=== PATIENT | male | born 1995 | race Caucasian/White ===

== ENCOUNTER 2020-10-27 18:52 | Inpatient (IN) | payer OTHER ==
[~2020-10-27] VITALS: Ht 152.4 cm; Wt 102.4 kg
[2020-10-27 20:55] VITALS: BP 133/64; PULSE 92; TEMP 99.7
[2020-10-27 22:15] LABS: PARTIAL THROMBOPLASTIN TIME 33.3 SECONDS (26.0-37.0)
--- NOTE | 2020-10-28 00:08 | NUR ---
Jhony is 24 year old who came by EMS for increase SOB. He is Heparin drip at 18.5 ml/h. Magui rios just starteed. He is currently on 3L of O2. Will wean him down by morning. Will continue to monitor.
[2020-10-28 00:41] VITALS: BP 139/70; PULSE 94; TEMP 10.1
--- NOTE | 2020-10-28 00:45 | NUR ---
Vancomycin Initial Dosing Pharmacy Note Ordering provider: Moise Phan MD Indication/duration: PNA / 5 days Relevant comorbidities: Recent COVID infection, bilateral PE LABS: (Outside records) WBC = 15.7, T = 99.7 F, SCr = 0.93 Recommendation: Will draw troughs and follow levels. Loading dose: 2 grams Maintenance dose: 1.5 grams every 8 hours Trough goal: 15-20 ug/mL
[2020-10-28 02:34] VITALS: TEMP 98.5
[2020-10-28 05:50] VITALS: BP 128/55; PULSE 82; TEMP 98.8
[2020-10-28 09:16] LABS: MEAN CELL VOLUME 85 fl (80.0-100.0); MEAN CORPUSCULAR HGB CONC 33 g/dl (33.0-37.0); MEAN PLATELET VOLUME 10.5 fl (7.4-10.4); PLATELET COUNT 165 K/mm3 (130-400); RED BLOOD COUNT 3.43 M/mm3 (4.20-5.60); REDCELL DISTRIBUTION WIDTH-CV 12.2 % (11.5-14.5)
[2020-10-28 09:26] LABS: HEMATOCRIT 29.3 % (42.0-52.0); HEMOGLOBIN 9.7 g/dl (13.5-18.0); MEAN CORPUSCULAR HEMOGLOBIN 28 pg (27.0-31.0)
[2020-10-28 09:53] LABS: BASOPHIL 1 % (0-2); EOSINOPHIL 36 % (0-4); LYMPHOCYTE 20 % (20.0-51.0); NEUTROPHILS 39 % (42.0-75.2); NUCLEATED RED BLOOD CELL 2 (0-6)
[2020-10-28 09:54] LABS: PLATELET ESTIMATE NORMAL (NORMAL)
[2020-10-28 12:37] VITALS: BP 138/73; PULSE 90; TEMP 97.6
--- NOTE | 2020-10-28 14:05 | NUR ---
SW called patient to complete intake due to patient being in isolation. Patient states that he lives in [place], [place] with his Trish [phone]. Patient provides that he does not utilize any DME and is independent with ADLs. Patient provides that his PCP is Dr. Oreilly at [facility], and he receives his medications from [facility] as well. Patient provides that he is able to afford his medications and does not utilize any HH services at this time. Patient states that he does not wish to appoint anyone as his DPOA-HC at this time. Patient [place] [facility] [place] has no questions or concerns in that regard. SW will continue to follow. Plan: Home with spouse
[2020-10-28 14:21] LABS: CALCIUM 8.6 mg/dL (8.4-10.2); CREATININE, serum 0.83 (0.66-1.25); POTASSIUM 4.1 mmol/L (3.4-5.0)
[2020-10-28 16:54] VITALS: BP 126/63; PULSE 70; TEMP 98.3
[2020-10-28 21:22] VITALS: BP 147/68; PULSE 89; TEMP 98.8
[2020-10-29] VITALS: BP 136/61; PULSE 79; TEMP 97.8
[2020-10-29 04:01] VITALS: BP 130/66; PULSE 88; TEMP 97.7
--- NOTE | 2020-10-29 04:20 | NUR ---
PT HEPARING GTT INCREASED 250= OR 2.5ML/HR. PT INFUSING AT 26ML/HR. CALL LIGHT WITHIN REACH.
--- NOTE | 2020-10-29 05:06 | NUR ---
HEP GTT STOPPED AT 0500 ORDERED. CALL LIGHT WITHIN REACH.
--- NOTE | 2020-10-29 05:42 | NUR ---
PT REMAINS ON 3L HIGHFLOW NC, SATURATING OVER 94%,PT DENIES PAIN, N/V/D. PT IS SOB ON EXERTION, VSS. HEP GTT CURRENTLY STOPPED PER ORDER, ZOSYN CURRENTLY INFUSING AT 25ML/HR TO RIGHT FA. PT EXPRESSES NO ADDITIONAL NEEDS AT THIS TIME. CALL LIGHT WITHIN REACH.
[2020-10-29 07:23] LABS: ALBUMIN 3.3 gm/dL (3.5-5.0); BILIRUBIN,TOTAL 0.3 mg/dL (0.0-1.0); CALCIUM 9.5 mg/dL (8.4-10.2); CREATININE, serum 1.01 (0.66-1.25); POTASSIUM 4.2 mmol/L (3.4-5.0); TOTAL PROTEIN 6.9 gm/dL (6.4-8.2)
[2020-10-29 07:33] LABS: BASO # 0.1 (0.0-0.2); BASO % 0.3 % (0.0-2.0); EOS % 0.1 % (0-4.0); GRAN % 86.8 % (42.2-75.2); HEMOGLOBIN 10.4 g/dl (13.5-18.0); LYMPH # 1.4 (1.2-3.4); LYMPH % 7.7 % (20.0-51.0); MEAN CELL VOLUME 85 fl (80.0-100.0); MEAN CORPUSCULAR HEMOGLOBIN 29 pg (27.0-31.0); MEAN CORPUSCULAR HGB CONC 34 g/dl (33.0-37.0); MEAN PLATELET VOLUME 10.2 fl (7.4-10.4); MONO # 0.8 (0.1-0.6); MONO % 4.1 % (1.7-9.3); PLATELET COUNT 197 K/mm3 (130-400)
[2020-10-29 07:35] LABS: HEMATOCRIT 30.6 % (42.0-52.0)
[2020-10-29 08:27] VITALS: BP 143/68; PULSE 94; TEMP 98.3
[2020-10-29 08:38] LABS: HIV 1/2 Antibodies Non-Reactive; HIV-1p24 Antigen Non-Reactive
--- NOTE | 2020-10-29 09:38 | NUR ---
Pt awake and alert upon entry, assisted provider with thoracentisis, prepared specimens for lab, Pt tolerated well. Shift assessment complete, left Pt call light in reach, bed in lowest position.
[2020-10-29 09:41] LABS: PLEURAL FLUID RBC 7000 /mm3 (0-0); PLEURAL FLUID WBC 2180 /mm3
[2020-10-29 09:43] LABS: PLEURAL FLUID APPEARANCE CLOUDY; PLEURAL FLUID COLOR AMBER
[2020-10-29 09:59] LABS: GLUCOSE,PLEURAL FLUID 117 mg/dL; TOTAL PROTEIN,PLEURAL FLUID 4.2 gm/dL
[2020-10-29 11:33] VITALS: BP 138/68; PULSE 86; TEMP 98.1
[2020-10-29 16:53] VITALS: BP 132/64; PULSE 55; TEMP 98.6
--- NOTE | 2020-10-29 16:56 | NUR ---
Vancomycin Follow-up Pharmacy Note Current regimen: Vancomycin 1.5 gm IV q8h Vancomycin trough: 13.52 Adjustments: Increase to Vancomycin 1.75 gm IV q8h. Pharmacy will continue to monitor and check a Vancomycin trough on 10/30/20.
[2020-10-29 18:01] LABS: C-ANCA 6 U/mL (0-99)
--- NOTE | 2020-10-29 19:02 | NUR ---
Received report from Kilo. Patient awake in bed. Vancomycin currently infusing.
--- NOTE | 2020-10-29 20:55 | NUR ---
Assesment done. Patient on O2 at 3lpm via NC. Breathing treatment ongoing. He denies pain. PICC line on right upper arm flushes well and with backflow. Call light within reach.
[2020-10-29 20:56] VITALS: BP 146/72; PULSE 99; TEMP 98.5
[2020-10-30 00:51] VITALS: BP 120/66; PULSE 69; TEMP 97.9
[2020-10-30 01:20] LABS: BODY FLUID PH (AMS) 8 (())
[2020-10-30 03:35] VITALS: BP 123/64; PULSE 86; TEMP 97.8
[2020-10-30 06:10] LABS: MEAN CELL VOLUME 88 fl (80.0-100.0); MEAN CORPUSCULAR HGB CONC 33 g/dl (33.0-37.0); MEAN PLATELET VOLUME 10.3 fl (7.4-10.4); PLATELET COUNT 245 K/mm3 (130-400); RED BLOOD COUNT 3.44 M/mm3 (4.20-5.60); REDCELL DISTRIBUTION WIDTH-CV 12.2 % (11.5-14.5)
--- NOTE | 2020-10-30 06:11 | NUR ---
Patient still on O2 at 3lpm via NC. He is afebrile. Still with dyspnea on exertion. Zosyn currently infusing.
[2020-10-30 06:14] LABS: HEMATOCRIT 30.2 % (42.0-52.0); HEMOGLOBIN 9.8 g/dl (13.5-18.0); MEAN CORPUSCULAR HEMOGLOBIN 28 pg (27.0-31.0)
[2020-10-30 06:21] LABS: CALCIUM 9.2 mg/dL (8.4-10.2); CREATININE, serum 0.95 (0.66-1.25); POTASSIUM 4.4 mmol/L (3.4-5.0)
[2020-10-30 07:08] LABS: LYMPHOCYTE 7 % (20.0-51.0); NEUTROPHILS 90 % (42.0-75.2); PLATELET ESTIMATE NORMAL (NORMAL)
[2020-10-30 08:00] VITALS: BP 131/71; PULSE 59; TEMP 97.6
--- NOTE | 2020-10-30 09:21 | NUR ---
Pt napping upon entry, no C/O pain at this time. Shift assessment complete, left Pt call light in reach, bed in lowest position.
[2020-10-30 10:12] LABS: ANA SCREEN with REFLEX Negative (Negative)
[2020-10-30 12:00] VITALS: BP 128/58; PULSE 73; TEMP 97.9
[2020-10-30 15:25] LABS: TB GOLD INTERPRETATION Indeterminate (Negative)
[2020-10-30 16:45] VITALS: BP 131/76; PULSE 63; TEMP 98.3
--- NOTE | 2020-10-30 19:02 | NUR ---
Received report from Kilo. Patient awake in bed. On O2 at 4lpm via NC. With ongoing Vancomycin.
[2020-10-30 20:11] VITALS: BP 132/72; PULSE 77; TEMP 98.1
--- NOTE | 2020-10-30 20:43 | NUR ---
Patient wants to take a shower. Will give Zosyn after. Ashley of [facility] informed me that she decreased O2 of the patient to 2lp via NC.
[2020-10-31] VITALS (7 sets, daily range): BP systolic 130–156; BP diastolic 66–85; PULSE 61–94; TEMP 97.9–98.7
--- NOTE | 2020-10-31 05:50 | NUR ---
Patient had uneventful night. O2 was down at 1lpm via NC. He was able to take a shower with no dyspnea.
[2020-10-31 05:53] LABS: MEAN CELL VOLUME 88 fl (80.0-100.0); MEAN CORPUSCULAR HGB CONC 33 g/dl (33.0-37.0); MEAN PLATELET VOLUME 9.8 fl (7.4-10.4); PLATELET COUNT 192 K/mm3 (130-400); RED BLOOD COUNT 3.26 M/mm3 (4.20-5.60); REDCELL DISTRIBUTION WIDTH-CV 12.4 % (11.5-14.5)
[2020-10-31 05:57] LABS: HEMATOCRIT 28.6 % (42.0-52.0); HEMOGLOBIN 9.4 g/dl (13.5-18.0); MEAN CORPUSCULAR HEMOGLOBIN 29 pg (27.0-31.0)
[2020-10-31 06:07] LABS: CALCIUM 8.6 mg/dL (8.4-10.2); CREATININE, serum 1.13 (0.66-1.25); MAGNESIUM 1.8 mg/dL (1.6-2.3); POTASSIUM 3.6 mmol/L (3.4-5.0)
[2020-10-31 06:44] LABS: EOSINOPHIL 14 % (0-4); METAMYELOCYTE 1 % (0-0); NEUTROPHILS 57 % (42.0-75.2)
[2020-10-31 06:45] LABS: HYPOCHROMIA 1+; LYMPHOCYTE 22 % (20.0-51.0); PLATELET ESTIMATE NORMAL (NORMAL)
--- NOTE | 2020-10-31 11:00 | NUR ---
Patient is doing well today. He is upset about not getting taken off isolation. Explained that Dr Knutson wants him to do the AFB and he needs a sputum test tomorrow. He has not had a productive cough but explained if he gets anything in his cough tomorrow morning to spit it into the cup. He verbalized understanding. Offered him a shower today, he stated maybe at bedtime. No other changes at this time. Call light within reach.
--- NOTE | 2020-10-31 17:00 | NUR ---
Went in to hang patient IV Vanc and he had a large oval red, warm to the touch area on his right forearm. It was only to the ouside of the forearm and did not go up to the PICC line or past the PICC line on the right arm. Patient denies pain or irritation to that area. He denies increased shortness of breath swelling to throat. Checked for spots anywhere else and did not find any. He was not laying on his arm or side. Notified Dr Martin, he said to just watch for tonight and they will recheck it tomorrow. No other changes at this time. Call light within reach.
--- NOTE | 2020-10-31 23:48 | NUR ---
Patient is on 1L non heated high flow with saturation of 87%. Encouraged him deep breathing and it only went up to 88 to 89%. Bump oxygen to 2L and it went up to between 92 to 94. He is having non productive cough otherwise denies pain or SOB. Continue to monitor.
--- NOTE | 2020-11-01 00:16 | NUR ---
right upper arm is warm to touch, reddened, non tender. denies pain.
[2020-11-01 08:18] VITALS: BP 128/78; PULSE 79; TEMP 98.5
--- NOTE | 2020-11-01 09:30 | NUR ---
Scheduled medication given, assessment preformed. Upon auscultation, lungs sound were diminished. Patient continues to require 2 L of O2 via nasal cannula. Patient denies any pain, discomfort, or further needs at this time. No redness, irritation, or edema noted on at PICC site. Will continue to monitor. Call light in reach.
[2020-11-01 12:05] VITALS: BP 134/74; PULSE 61; TEMP 98.5
--- NOTE | 2020-11-01 15:25 | NUR ---
Tree Girdler spoke with RN who advised patient has been independent in his room and is still on 2 liters of oxygen. SW will continue to monitor for discharge needs.
[2020-11-01 16:00] VITALS: BP 129/73; PULSE 83; TEMP 98.3
--- NOTE | 2020-11-01 18:30 | NUR ---
Patient has had an ok day. Continue to be on 2 L via nasal cannula. Denies any pain, discomfort, or SOA at this time. Antibiotics running as ordered. Consent for RADHA recieved and placed on chart. Update given to patient's . Report given to UMBERTO Winn. Call light in reach.
[2020-11-01 20:50] VITALS: BP 132/70; PULSE 88; TEMP 99.3
[2020-11-01 23:59] VITALS: BP 138/78; PULSE 80; TEMP 99
[2020-11-02] VITALS (10 sets, daily range): BP systolic 123–142; BP diastolic 63–76; PULSE 67–98; TEMP 98–98.4
[2020-11-02 08:34] LABS: .HISTOPLASMA ANTIGEN SERUM None Detected (())
--- NOTE | 2020-11-02 18:00 | NUR ---
Patient has had an eventful day. RADHA preformed, tolerated well, results are not back yet. Thoracentesis preformed, 700 ml removed, tolerated well. Fluids and antibiotics running as ordered. VSS. Scheduled medication given. Assessments preformed. Tylenol given earlier in shift for a headache rated a 3/10. Patient currently SATing 95% on RA. O2 available for ambulation. Patient denies any further pain, discomfort, or further needs at this time. Call light in reach. Report given to UMBERTO Winn.
--- NOTE | 2020-11-02 21:14 | NUR ---
Report given that he is in Room air, when I assess him he is in 2L. RT was in his room and said that he lower it down from 3L to 2L and his saturation is between 95 to 98%. I told him that he can be off with Oxygen but he said he will wear it for tonight. I just have him use for his comfort. Otherwise he is fine no complains of SOB or pain. He is resting comfortably in bed. continue to follow.
[2020-11-03 04:07] VITALS: BP 116/62; PULSE 88; TEMP 98
[2020-11-03 08:45] VITALS: BP 130/59; PULSE 87; TEMP 98
--- NOTE | 2020-11-03 08:52 | NUR ---
Pt assessment complete. Pt is laying in bed upon entry, he is A/O x4. His breathing is even and unlabored on 0.5L O2 via NC. Reports some SOB on exertion. Prefers to wear O2 while sleeping despite good sat's. No Pain at this time. Denies N/V, no appetite currently. Denies diarrhea. No needs at this time.
[2020-11-03 12:15] VITALS: BP 122/69; PULSE 85; TEMP 97.4
--- NOTE | 2020-11-03 14:27 | NUR ---
Updated the per patients request.
[2020-11-03 15:11] LABS: MEAN CELL VOLUME 85 fl (80.0-100.0); MEAN CORPUSCULAR HEMOGLOBIN 28 pg (27.0-31.0); MEAN CORPUSCULAR HGB CONC 33 g/dl (33.0-37.0); MEAN PLATELET VOLUME 9.4 fl (7.4-10.4); PLATELET COUNT 182 K/mm3 (130-400); RED BLOOD COUNT 3.55 M/mm3 (4.20-5.60); REDCELL DISTRIBUTION WIDTH-CV 12.5 % (11.5-14.5)
[2020-11-03 15:25] LABS: CALCIUM 8.4 mg/dL (8.4-10.2); CREATININE, serum 1.03 (0.66-1.25); POTASSIUM 3.5 mmol/L (3.4-5.0)
[2020-11-03 16:01] LABS: BASOPHIL 2 % (0-2); EOSINOPHIL 30 % (0-4); LYMPHOCYTE 19 % (20.0-51.0); METAMYELOCYTE 1 % (0-0); NEUTROPHILS 46 % (42.0-75.2)
[2020-11-03 16:02] LABS: PLATELET ESTIMATE NORMAL (NORMAL)
[2020-11-03 16:45] VITALS: BP 140/68; PULSE 92; TEMP 97.9
[2020-11-03 19:07] VITALS: BP 136/95; PULSE 106; TEMP 98.5
--- NOTE | 2020-11-03 19:15 | NUR ---
Uneventful night. RA this afternoon. No pain. POC discussed with patient to have a thora in the AM. Pt verbalized understanding. Linens changed, shower offered. No needs at this time.
[2020-11-04 00:07] VITALS: BP 131/75; PULSE 104; TEMP 98.4
[2020-11-04 04:22] VITALS: BP 120/66; PULSE 94; TEMP 98.1
--- NOTE | 2020-11-04 06:01 | NUR ---
PT SLEPT MAJORITY OF THE NIGHT, REMAINED AFEBRILE THROUGH OUT NIGHT , PT CONTINUES WITH A PRODUCTIVE COUGH AND CONTINUES TO RECEIVE BREATHING TX Q6. 1/2 NS INFUSING VIA PICC LINE AT 50ML/HR, PT DENIES N/V/D. CONSENT FOR THORACENTIS 11/04/20 SIGNED AND PLACED IN PT'S CHART. PT EXPRESSES NO ADDITIONAL NEEDS AT THIS TIME. CALL LIGHT WITHIN REACH.
[2020-11-04 08:11] VITALS: BP 121/67; PULSE 92; TEMP 98.3
--- NOTE | 2020-11-04 08:51 | NUR ---
Pt assessment complete. Pt is laying in bed upon entry, he arouses to voice. Has no pain at this time. Denies SOB. No diarrhea. POC discussed with patient, possible thoracentesis this am. No further needs.
[2020-11-04 08:52] LABS: MEAN CELL VOLUME 85 fl (80.0-100.0); MEAN CORPUSCULAR HGB CONC 33 g/dl (33.0-37.0); MEAN PLATELET VOLUME 9.9 fl (7.4-10.4); PLATELET COUNT 198 K/mm3 (130-400); RED BLOOD COUNT 3.42 M/mm3 (4.20-5.60); REDCELL DISTRIBUTION WIDTH-CV 12.6 % (11.5-14.5)
[2020-11-04 08:53] LABS: HEMATOCRIT 29.1 % (42.0-52.0); HEMOGLOBIN 9.7 g/dl (13.5-18.0); MEAN CORPUSCULAR HEMOGLOBIN 28 pg (27.0-31.0)
[2020-11-04 09:03] LABS: CALCIUM 8.2 mg/dL (8.4-10.2); CREATININE, serum 1.06 (0.66-1.25); POTASSIUM 3.4 mmol/L (3.4-5.0)
[2020-11-04 10:00] LABS: EOSINOPHIL 24 % (0-4); LYMPHOCYTE 30 % (20.0-51.0); NEUTROPHILS 37 % (42.0-75.2); PLATELET ESTIMATE NORMAL (NORMAL)
[2020-11-04 10:01] LABS: STOMATOCYTE 1+
[2020-11-04 12:55] VITALS: BP 118/64; PULSE 99; TEMP 98.3
[2020-11-04 14:54] LABS: COCCIDIOIDES AB IGG Negative (Negative); COCCIDIOIDES AB IGM Negative (Negative); COCCIDIOIDES CF Negative (Negative)
[2020-11-04 17:34] VITALS: BP 126/74; PULSE 91; TEMP 98.6
--- NOTE | 2020-11-04 18:21 | NUR ---
Pt had uneventful day, remained on RA. No pain reported. POC discussed with patient possible thora in the AM. Denies needs at this time. Call light within reach. y
[2020-11-04 20:00] VITALS: BP 146/74; PULSE 101; TEMP 99
[2020-11-05] VITALS (11 sets, daily range): BP systolic 118–138; BP diastolic 67–78; PULSE 75–119; TEMP 97.5–98.9
[2020-11-05 05:59] LABS: HEMOGLOBIN 10.3 g/dl (13.5-18.0); MEAN CELL VOLUME 86 fl (80.0-100.0); MEAN CORPUSCULAR HEMOGLOBIN 28 pg (27.0-31.0); MEAN CORPUSCULAR HGB CONC 33 g/dl (33.0-37.0); PLATELET COUNT 208 K/mm3 (130-400); RED BLOOD COUNT 3.65 M/mm3 (4.20-5.60); REDCELL DISTRIBUTION WIDTH-CV 12.7 % (11.5-14.5)
[2020-11-05 06:07] LABS: HEMATOCRIT 31.2 % (42.0-52.0)
[2020-11-05 06:15] LABS: CREATININE, serum 1.22 (0.66-1.25); POTASSIUM 3.5 mmol/L (3.4-5.0)
--- NOTE | 2020-11-05 06:17 | NUR ---
PT A/OX4, VSS, REMAINS AFEBRILE, PT APPEARS TO BE COUGHING LESS, COUGH REMAINS PRODUCTIVE. ANTIBIOTICS INFUSING TO RIGHT UPPER PICC LINE, PT DENIES PAIN, N/V/D. PT EDUCATED ON PICC REMOVAL WELL SCHEDULED THORACENTESIS. PT VERBALIZES UNDERSTANDING. PT EXPRESSES NO ADDITIONAL NEEDS AT THIS TIME. CALL LIGHT WITHIN REACH.
[2020-11-05 06:54] LABS: BAND 1 % (0-10); EOSINOPHIL 23 % (0-4); HYPOCHROMIA 1+; LYMPHOCYTE 31 % (20.0-51.0); MYELOCYTE 1 % (0-0); NEUTROPHILS 38 % (42.0-75.2); OVALOCYTES 1+; PLATELET ESTIMATE NORMAL (NORMAL)
[2020-11-05 10:56] LABS: PLEURAL FLUID RBC 2000 /mm3 (0-0); PLEURAL FLUID WBC 3295 /mm3
[2020-11-05 11:00] LABS: GLUCOSE,PLEURAL FLUID 66 mg/dL; TOTAL PROTEIN,PLEURAL FLUID 4.2 gm/dL
[2020-11-05 11:02] LABS: PLEURAL FLUID APPEARANCE HAZY; PLEURAL FLUID COLOR YELLOW
--- NOTE | 2020-11-05 19:06 | NUR ---
Pt tolerated thoracentesis to Left lung 300cc out. PICC removed by AIVS, tip sent for culture. New IV started to L hand. Pt no longer on isolation. Pt did not eat lunch or breakfast, drank an ensure. POC discussed with patient who verbalizes understading. No needs at this time.
[2020-11-06 00:10] VITALS: BP 135/73; PULSE 107; TEMP 98.8
[2020-11-06 02:12] LABS: BODY FLUID PH (AMS) 8 (())
[2020-11-06 03:21] VITALS: BP 139/67; PULSE 108; TEMP 98.5
--- NOTE | 2020-11-06 06:11 | NUR ---
PT HAD UNEVENTFUL NIGHT, 02 ROOM AIR, AFEBRILE, PT DENIES PAIN/N/V/D/SOA. PT EXPRESSES NO ADDITIONAL NEEDS AT THIS TIME. CALL LIGHT WITHIN REACH.
[2020-11-06 06:33] LABS: CALCIUM 9.2 mg/dL (8.4-10.2); CREATININE, serum 1.1 (0.66-1.25); POTASSIUM 3.7 mmol/L (3.4-5.0)
[2020-11-06 06:49] LABS: HEMOGLOBIN 11.1 g/dl (13.5-18.0); MEAN CELL VOLUME 86 fl (80.0-100.0); MEAN CORPUSCULAR HEMOGLOBIN 29 pg (27.0-31.0); MEAN CORPUSCULAR HGB CONC 33 g/dl (33.0-37.0); MEAN PLATELET VOLUME 10.7 fl (7.4-10.4); PLATELET COUNT 237 K/mm3 (130-400); RED BLOOD COUNT 3.89 M/mm3 (4.20-5.60); REDCELL DISTRIBUTION WIDTH-CV 13.1 % (11.5-14.5)
[2020-11-06 07:05] LABS: HEMATOCRIT 33.6 % (42.0-52.0)
[2020-11-06 07:28] LABS: BASOPHIL 1 % (0-2); EOSINOPHIL 20 % (0-4); LYMPHOCYTE 18 % (20.0-51.0); METAMYELOCYTE 1 % (0-0); NEUTROPHILS 52 % (42.0-75.2); PLATELET ESTIMATE NORMAL (NORMAL)
[2020-11-06 08:11] VITALS: BP 136/77; PULSE 95; TEMP 98
[2020-11-06 11:00] VITALS: BP 136/78; PULSE 109; TEMP 98.1
--- NOTE | 2020-11-06 14:25 | NUR ---
Patient will need outpatient IV antibiotics at time of discharge. LUCIA contacted patient who would like to set up appointments at [facility]. LUCIA contacted [facility] and left a message. LUCIA then faxed referral to fax #[phone].
[2020-11-06 17:14] VITALS: BP 142/79; PULSE 100; TEMP 98.9
[2020-11-06 19:41] VITALS: BP 136/76; PULSE 92; TEMP 99.3
--- NOTE | 2020-11-06 23:34 | NUR ---
ALERT AND OX4. DENIES ANY PAIN, SOA OR DIZZY. LOVENOX FOR VTE. POC DISCUSSED. HOPES TO GET DC IN AM. PLEASENT AND COOPERATIVE. CALL LIGHT WI REACH. DENIES NEEDS AT THIS TIME.
[2020-11-07 01:03] VITALS: BP 128/82; PULSE 92; TEMP 98.3
[2020-11-07 03:57] VITALS: BP 134/83; PULSE 101; TEMP 97.5
[2020-11-07 07:05] LABS: CALCIUM 9.2 mg/dL (8.4-10.2); CREATININE, serum 1.1 (0.66-1.25); MAGNESIUM 1.9 mg/dL (1.6-2.3)
[2020-11-07 07:08] LABS: HEMOGLOBIN 11.7 g/dl (13.5-18.0); MEAN CELL VOLUME 85 fl (80.0-100.0); MEAN CORPUSCULAR HEMOGLOBIN 28 pg (27.0-31.0); MEAN CORPUSCULAR HGB CONC 33 g/dl (33.0-37.0); MEAN PLATELET VOLUME 10.4 fl (7.4-10.4); PLATELET COUNT 236 K/mm3 (130-400); RED BLOOD COUNT 4.15 M/mm3 (4.20-5.60)
[2020-11-07 07:12] LABS: HEMATOCRIT 35.4 % (42.0-52.0)
[2020-11-07 07:42] LABS: BAND 1 % (0-10); BASOPHIL 2 % (0-2); EOSINOPHIL 19 % (0-4); LYMPHOCYTE 32 % (20.0-51.0); METAMYELOCYTE 1 % (0-0); NEUTROPHILS 37 % (42.0-75.2); PLATELET ESTIMATE NORMAL (NORMAL)
--- NOTE | 2020-11-07 08:07 | NUR ---
Pt sleeping upon entry to room, easily awakened. No C/O pain at this time. Shift assesssments complete, left Pt call light in reach, bed in lowest position.
[2020-11-07 08:35] VITALS: BP 128/75; PULSE 94; TEMP 98.5
[2020-11-07] MEDS ORDERED: ELIQUIS 5MG PO (09:05)
[2020-11-07] MEDS ORDERED: ROCEPHIN VIA1 G/VIAL IV (09:05)
[2020-11-07] MEDS ORDERED: PROAIR HFA0.09 MG/AC IH (09:05)
[2020-11-07] MEDS ORDERED: PREDNISONE20 MG PO (10:02)
--- NOTE | 2020-11-07 10:21 | NUR ---
Dust Sampler attended clinical rounds with the team. The patient to have a PICC line placed this day. The patient to discharge home today, 11/07 with IV antibiotics at [facility] in [place]. Milena with IV services at [place] reports they can accept the patient if he is off precautions and has a negative Covid-19 test. The patient is off precautions and his Covid-19 test resulted negative. Milena reports the patient needs to be at the ED entrance of [facility] at 1000 on , 11/07. The team and patient was in agreeance. SW faxed discharge orders, script, and Covid-19 results. *Discharge disposition: Home with OP IV antibiotics at [facility].
[2020-11-07 12:00] VITALS: BP 130/80; PULSE 96; TEMP 98.6
--- NOTE | 2020-11-07 14:41 | NUR ---
Pt discharged to home, discussed discharge instructions with Pt. Escorted Pt to entrance, left with spouse via private transportation.
== END 2020-11-07 14:43 | disposition home or self-care (01) | DRG 306 ==
LOC: MEDICAL 18:52
PROVIDERS: Hospitalist; Internal Medicine Pulmonary Disease; Physician Assistant; Student in an Organized Health Care Education/Training Program; ADMIT Internal Medicine
PROC: 0W9B3ZZ Drainage of Left Pleural Cavity, Percutaneous Approach (ICD-10-PCS; principal; 2020-10-29)
PROC: 02HV33Z Insertion of Infusion Device into Superior Vena Cava, Percutaneous Approach (ICD-10-PCS; 2020-10-29)
PROC: 0W9B3ZZ Drainage of Left Pleural Cavity, Percutaneous Approach (ICD-10-PCS; 2020-11-05)
DX: I36.8 Other nonrheumatic tricuspid valve disorders (principal); I26.90 Septic pulmonary embolism without acute cor pulmonale; J18.9 Pneumonia, unspecified organism; I76 Septic arterial embolism; J90 Pleural effusion, not elsewhere classified; R04.2 Hemoptysis; E87.1 Hypo-osmolality and hyponatremia; I82.451 Acute embolism and thrombosis of right peroneal vein; R91.1 Solitary pulmonary nodule; D72.19 Other eosinophilia; D64.9 Anemia, unspecified; Z86.16 Personal history of COVID-19; Z20.822 Contact with and (suspected) exposure to COVID-19
CPT/HCPCS: 99223-AI; 99232-AI; 99233-AI; 99239; C1751; J0696; J1644; J1650; J2543; J2704; J2920; J3370; J7040; J7050; J7120

== ENCOUNTER → 2021-04-25 | Outpatient (CLI) | payer OTHER ==
[~2021-04-25] MED LIST: ELIQUIS 5MG PO; PREDNISONE20 MG PO; PROAIR HFA0.09 MG/AC IH; ROCEPHIN VIA1 G/VIAL IV
== END ==
LOC: COL.VAS 13:12
DX: R78.81 Bacteremia (principal); R06.02 Shortness of breath

== ENCOUNTER 2021-05-31 07:44 | Outpatient (CLI) | payer OTHER ==
[~2021-05-31] VITALS: Ht 152.4 cm; Wt 104.2 kg
[2021-05-31] VITALS (9 sets, daily range): BP systolic 112–131; BP diastolic 72–86; PULSE 61–79; TEMP 98
[2021-05-31] MEDS ORDERED: PROAIR HFA0.09 MG/AC IH (08:06)
[2021-05-31] MEDS ORDERED: RT ADVAIR 228 DISKUS IH (08:07)
[2021-05-31 08:18] LABS: HEMATOCRIT 44.6 % (42.0-52.0); HEMOGLOBIN 15.8 g/dl (13.5-18.0); MEAN CELL VOLUME 87 fl (80.0-100.0); MEAN CORPUSCULAR HEMOGLOBIN 31 pg (27-31); MEAN CORPUSCULAR HGB CONC 35 g/dl (33.0-37.0); MEAN PLATELET VOLUME 9.8 fl (7.4-10.4); PLATELET COUNT 224 K/mm3 (130-400); RED BLOOD COUNT 5.15 M/mm3 (4.20-5.60); REDCELL DISTRIBUTION WIDTH-CV 12.2 % (11.5-14.5)
[2021-05-31 08:37] LABS: CALCIUM 8.9 mg/dL (8.4-10.2); CREATININE, serum 0.83 mg/dL (0.72-1.25); INR 1.1 (0.8-3.0); POTASSIUM 3.9 mmol/L (3.5-4.5); PROTHROMBIN TIME 12.4 SECONDS (9.7-12.8)
--- NOTE | 2021-05-31 09:45 | NUR ---
PT care assumed, report received from Karen SHIPMAN. Pt is sleeping, he is arousable to voice. vitals stable, he is pwd, with reg and unlabored respirations. josselin
--- NOTE | 2021-05-31 12:20 | NUR ---
Pt did fine during his recovery from his RADHA. Pt slept well initially after procedure, but has been awake and alert, watching TV, able to drink fluids with no problem for last hour. Dr. Miranda did come see pt at 1135 to discuss test result and poc. Pt has been up and is steady on his feet. IV dc'd with cath intact, dressing applied. I reviewed dc/fu instructions with pt who verbalized understnading. I ambulated with pt to exit where friend is waiting to give him a ride.
== END 2021-05-31 12:20 | disposition home or self-care (01) ==
LOC: COL.RAD 07:44
PROVIDERS: Internal Medicine Cardiovascular Disease
DX: I38 Endocarditis, valve unspecified (principal)
CPT/HCPCS: J0330; J2704; J7030

== ENCOUNTER → 2021-08-08 | Outpatient (CLI) | payer OTHER ==
[~2021-08-08] MED LIST changes: +RT ADVAIR 228 DISKUS IH
== END ==
LOC: COL.RAD 09:49
DX: G43.909 Migraine, unspecified, not intractable, without status migrainosus (principal)
CPT/HCPCS: A9575

== ENCOUNTER → 2021-08-13 | Outpatient (CLI) | payer OTHER | LOC: COL.PUL 09:22 | DX: R06.02 Shortness of breath (principal) | CPT/HCPCS: J7674 ==